=== PATIENT | female | born 1975 | race Caucasian/White ===

== ENCOUNTER 2022-04-25 08:13 | Outpatient (CLI) | payer OTHER, SELFPAY | END 2022-04-25 08:14 | disposition home or self-care (01) | LOC: INJ CL 08:15 | PROVIDERS: Visit Provider Family Medicine | DX: M53.3 Sacrococcygeal disorders, not elsewhere classified (principal); G89.29 Other chronic pain; M79.18 Myalgia, other site | CPT/HCPCS: 27096; J0702; Q9966 ==